=== PATIENT | female | born 1955 | race Caucasian/White ===

== ENCOUNTER → 2016-04-13 | Outpatient (CLI) | payer BC | LOC: RT 09:18 | PROVIDERS: ATTEND Internal Medicine | DX: I25.10 Atherosclerotic heart disease of native coronary artery without angina pectoris (principal) | CPT/HCPCS: 93005 ==

== ENCOUNTER → 2016-07-07 | Outpatient (CLI) | payer BC ==
[~2016-07-07] MED LIST: ASPI-586 PO; AZIT250T81 PO; CALC-140 PO; CHOL500014 PO; DICY10CA12 PO; FLUT16SP NS; LEVO15TA5 PO; MAALIDOBEN PO; MELO-249 PO; METO-272 PO; NFLOSA25TA PO; OMEG300C3 PO; PYRI100T2 PO; SPRN25T PO; UBID30CA13 PO; ZOLM5TAB8 PO
[2016-07-08 11:36] VITALS: BP 129/84
--- NOTE | 2016-07-08 11:36 | Urgent Care T Sheet Gen (E) ---
Intake General Temperature (Fahrenheit): 98.2 Pulse: 62 Blood Pressure Systolic: 129 Blood Pressure Diastolic: 84 Respirations: 16 SPO2: 97 Chief Complaint: sore throat Source: Patient History of Present Illness Initial Comments 61 year old female presents with sore throat x 24 hours. State she has recently started using CPAP and is unsure if her symptoms are related to this. States she has increased the humification to it's max on her CPAP. States she has nasal congestion and her nasal drainage has been blood tinged. Denies fever, chills, or malaise. Onset & Duration: Days (1) Timing: Still present Severity: Moderate Pain Intensity: 7 Modifying Factors: Eating (swallowing causes pain) Associated Symptoms: Nasal congestion Recent Trauma: No Similar Sympotms Previously: No Allergies: Coded Allergies: Sulfa (Sulfonamide Antibiotics) (Verified Allergy, Unknown, 07/24/15) Home Meds Active Scripts Fluticasone Propionate (Flonase Nasal [place] 50mcg/actuation)16 Gm Naspr2 [place] DAILY #1 BTL Prov:ANNIKA MORAES APRN 07/07/16 Diphenhydramine HCl (Maalox/Lidocaine/Benadryl Oral Solution)30 Ml Soln5-10 Ml PO QID #1 BTL 5-10 ml swish, gargle, and spit 4 times a day for 5 days prn Prov:ANNIKA MORAES APRN 07/07/16 Azithromycin (Zithromax Z-Abraham)6 Tab/Pkt [id number] Mg PO SEE INSTRUCTIONS #6 TAB Ref 0 Day One: Take 2 tablets by mouth Days Two-Five: Take 1 tablet by mouth Prov:REJI JUAN 03/06/16 Reported Medications Zolmitriptan (Zomig)5 Mg Tablet5 Mg PO NEEDED 07/24/15 Dicyclomine HCl 10 Mg Nbushpa33 Mg PO NEEDED 07/24/15 Meloxicam 15 Mg Cxdjqy33 Mg PO NEEDED 07/24/15 [place]-3 Fatty Acids (Fish Oil)300 Mg Adcnwcb971 Mg PO DAILY 07/24/15 Ubidecarenone (Coq-10)30 Mg CapsuleUnknown Dose PO DAILY 07/24/15 Aspirin (Aspir 81)81 Mg Tablet.dr81 Mg PO DAILY 07/24/15 Calcium Carbonate/Vitamin D3 (Calcium + Vitamin D Tablet)1 Each Tablet1 Each PO DAILY 07/24/15 Pyridoxine HCl (Vitamin B-6)100 Mg [id number] Mg PO DAILY 07/24/15 Cholecalciferol (Vitamin D3) (Vitamin D)5,000 Unit Tablet6,000 Unit PO DAILY Vitamin/Mineral Supplemnt Ref 0 07/24/15 Levomefolate Calcium (L-Methylfolate)15 Mg Nafflw45 Mg PO DAILY 07/24/15 Spironolactone 25 Mg Mtspnn26 Mg PO DAILY 07/24/15 Losartan Potassium 25 Mg TabletUnknown Dose PO DAILY 07/24/15 Metoprolol Succinate 50 Mg Tab.er.24h50 Mg PO DAILY 07/24/15 Respiratory Constitutional Symptoms: No Chills, No Diaphoresis, No Fever, No Malaise, No Weakness, No Other EENTM: No Eye pain, No Blurred vision, No Eye tearing, No Double Vision, No Ear pain, No Ear discharge, Nose Pain (mucosa feels dry) Nose Congestion Throat pain (pain with swallowing, no difficulty managing secretions)No Throat swelling, No Mouth Pain, No Mouth Swelling, No Other Respiratory: No Cough, No Orthopnea, No Short of breath, No Stridor, No Wheezing, No Other Cardiovascular: See HPINo Chest pain, No Edema, No Palpitations, No Syncope, No Other Gastrointestinal/Abdominal: No Abdominal pain, No Constipation, No Diarrhea, No Black stools, No Nausea, No Vomiting, No Other, No RUQ, No LUQ, No RLQ, No LLQ Genitourinary: No symptoms reported Musculoskeletal: No symptoms reported Skin: No Change in color, No Change in hair/nails, No Dryness, No Lesions, No Lumps, No Rash, No Other Neurological: No Anxiety, No Depressed, No Emotional problems, No Headache, No Numbness, No Paresthesia, No Pre-existing deficit, No Seizure, No Tingling, No Tremors, No Weakness, No Other Hematologic/Lymphatic: No symptoms reported Immunologic/Allergies: No symptoms reported All Other Systems Reviewed Remaining Systems: All other systems reviewed with negative findings Past Sjcoytb-Deirgx-Msqoul Hx Patient's Social History Alcohol Use: Occasionally Uses Smoking Status: Former smoker Surgeries/Hospitalizations Hospitalization/Surgery Hx: Tubal, Hysterectomy, wisdom teeth, 3 dental implants Respiratory Respiratory History: None Cardiovascular Cardiovascular History: Hypertension, Arrhythmia Reproductive System Sexually Transmitted Diseases: No Gastrointestinal GI/Endocrine History: None Diabetes Diabetes: No HEENT Impaired Vision: Glasses Hearing Impaired: None Psychosocial Behavior Disorders: Stress Physical Exam Physical Exam General Appearance: WD/WN No apparent distress Eyes, Ears, Nose, Throat Ex: PERRL/EOMI Pharyngeal erythema (mild, no exudate , no edema, no uvula deviation) Other (nasal mucosa mildly inflammed, no TTP over sinuses. ) Neck Exam: Non tender Full range of motion Supple Normal inspection Respiratory Exam: Chest non-tender Lungs clear Normal breath sounds No respiratory distress No accessory muscles used Cardiovascular Exam: Regular rate, rhythm No edema No gallop No JVD No murmur GI/ Exam: Non tender No organomegaly Normal bowel sounds No distention Back Exam: Normal Inspection No CVA tenderness Skin Exam: Normal color Warm/dry/intact No rashes No embolic lesions Extremity Exam: Non-tender Full range of motion Normal capillary refill No pedal edema Neurologic/Psychiatric Exam: Oriented times 4 Progress/Orders Lab Results Labs Results: Rapid Strep (NEGATIVE) Departure Urgent Care Impression Chief Complaint: sore throat Impression: Primary Impression: Viral pharyngitis Additional Impression: URI (upper respiratory infection) Qualified Code: J06.9 - Acute upper respiratory infection, unspecified Departure Disposition: HOME OR SELF-CARE Condition: Stable Referrals: [facility] (PCP) Additional Instructions: Reviewed Negative Rapid strep with patient. Discussed that given the short duration of symptoms, no facial pain, no fever, will treat and manage symptoms at this time. Reviewed with patient that she can increase fluids, use APAP, warm salt water gargles and will give rx for magic mouth wash. Will also prescribe Flonase to help with nasal symptoms. Advised that if symptoms worsen, persist, or fail to improve that she should return to care. Reviewed with patient current guidelines for treatment of sinusitis and the risks of antibiotic misuse. Pt agrees with plan. Recommended follow up with PCP. Scripts Fluticasone Propionate (Flonase Nasal [place] 50mcg/actuation)16 Gm Naspr2 [place] NS DAILY #1 BTL Prov:ANNIKA MORAES APRN 07/07/16 Diphenhydramine HCl (Maalox/Lidocaine/Benadryl Oral Solution)30 Ml Soln5-10 Ml PO QID #1 BTL 5-10 ml swish, gargle, and spit 4 times a day for 5 days prn Prov:ANNIKA MORAES APRN 07/07/16 End of report . ANNIKA MORAES [employer] Jul 07, 2016 12:01
== END ==
LOC: MHUC 10:57
PROVIDERS: ATTEND Nurse Practitioner Family
DX: J02.9 Acute pharyngitis, unspecified (principal); J06.9 Acute upper respiratory infection, unspecified
CPT/HCPCS: 87880; 99213

== ENCOUNTER → 2016-08-10 | Outpatient (CLI) | payer BC ==
[2016-08-10 13:16] LABS: ALBUMIN 4.4 g/dL (3.4-5.0); ANION GAP 13.8 MEQ/L (3-15); CALCULATED IONIZED CALCIUM 4.1 mg/dL (3.8-4.6); TOTAL PROTEIN 7.7 g/dL (6.4-8.5)
== END ==
LOC: LAB 12:25
PROVIDERS: ATTEND Family Medicine
DX: E78.2 Mixed hyperlipidemia (principal); N95.1 Menopausal and female climacteric states
CPT/HCPCS: 36415; 80053; 80061; 82670; 83001; 84403